=== PATIENT | male | born 1945 | race Caucasian/White ===

== ENCOUNTER 2021-11-21 09:51 | Inpatient (IN) | payer MEDICARE, OTHER ==
[~2021-11-21] VITALS: Ht 182.9 cm; Wt 80.7 kg
--- NOTE | 2021-11-21 10:15 | NUR ---
[facility] "UnWitnessed Fall yesterday. [place] at head and back Per Iris he told me he fell last night and was found w/alcohol in the bed". The patient is alert and oriented x2. Denies pain. Received the patient on oxygen at 4L/min (the patient is usually on oxygen) and saturation is at 97%. Respiration regular and unlabored. Attached to the monitor. Will continue to monitor the patient.
--- NOTE | 2021-11-21 10:44 | NUR ---
REPORT GIVEN TO NURSE DOUGLAS FOR NIKHIL
--- NOTE | 2021-11-21 10:44 | NUR ---
TAKEN TO CT
--- NOTE | 2021-11-21 11:09 | NUR ---
SWAB FOR COVID 19 SENT TO LAB.
--- NOTE | 2021-11-21 11:12 | NUR ---
PRODUCTION SUPERVISOR TRAINEE. AT BED SIDE
[2021-11-21 11:21] LABS: BASOPHILS % (AUTO) 0.4 % (0.0-2.0); EOSINOPHILS % (AUTO) 3.5 % (0.0-6.0); HEMATOCRIT 46 % (39-51); HEMOGLOBIN 14.7 g/dL (13.5-17.5); LYMPHOCYTES # (AUTO) 1.8 K/uL (0.8-4.8); MEAN CORPUSCULAR HGB CONC 32 g/dl (31.0-36.0); MEAN CORPUSCULAR VOLUME 94 fL (80-96); MONOCYTES # (AUTO) 0.4 K/uL (0.1-1.30); MONOCYTES % (AUTO) 9.4 % (2.0-12.0); NEUTROPHILS # (AUTO) 2.2 K/uL (1.8-8.9); NEUTROPHILS % (AUTO) 47.7 % (43.0-81.0); PLATELET COUNT (AUTO) 126 K/uL (150-450); RED BLOOD CELL COUNT(AUTO) 4.95 MIL/uL (4.5-6.0); WHITE BLOOD COUNT (AUTO) 4.7 K/uL (4.3-11.0)
[2021-11-21 11:50] LABS: ALANINE AMINOTRANSFERASE 24 U/L (12-78); ALBUMIN 3.2 g/dL (3.4-5.0); ALKALINE PHOSPHATASE 85 U/L (46-116); ASPARTATE AMINOTRANSFERASE 26 U/L (15-37); BILIRUBIN,DIRECT 0.2 mg/dL (0.0-0.2); BILIRUBIN,TOTAL 0.5 mg/dL (0.2-1.0); TOTAL PROTEIN, SERUM 7.2 g/dL (6.4-8.2)
[2021-11-21] MEDS ORDERED: AMAN100C16 PO (12:12)
[2021-11-21] MEDS ORDERED: UMEC1BLS IH (12:13)
[2021-11-21] MEDS ORDERED: RISP0.5T65 PO (12:13)
[2021-11-21] MEDS ORDERED: GABA-532 PO ×2 (12:13)
[2021-11-21] MEDS ORDERED: IPRA12.9 IH (12:13)
[2021-11-21] MEDS ORDERED: FLUO20CA42 PO (12:13)
[2021-11-21] MEDS ORDERED: DOCU100T28 PO (12:13)
[2021-11-21] MEDS ORDERED: TRAZ-257 PO (12:13)
[2021-11-21] MEDS ORDERED: ALBU6.7H9 INH (12:13)
[2021-11-21] MEDS ORDERED: ATOR20TA PO (12:13)
[2021-11-21 12:22] LABS: CREATININE 0.9 mg/dL (0.6-1.3)
--- NOTE | 2021-11-21 14:11 | NUR ---
NURSING SUP GAVE TELE BED 105.
--- NOTE | 2021-11-21 14:24 | NUR ---
COVID PCR AND ANTIGEN SENT TO THE LAB.
[2021-11-21 14:36] LABS: CREATININE 0.7 mg/dL (0.6-1.3)
--- NOTE | 2021-11-21 15:44 | NUR ---
report given to Cammy GARCIAS).
[2021-11-21 16:24] LABS: MAGNESIUM 2.4 mg/dL (1.8-2.4)
--- NOTE | 2021-11-21 16:30 | NUR ---
RN NOTE PATIENT ADMITTED TO UNIT PLACED IN ROOM 105.
--- NOTE | 2021-11-21 16:52 | NUR ---
pt transferred per hospital protocol.
--- NOTE | 2021-11-21 17:08 | NUR ---
RN NOTE INFORMED PROVIDER NO ADMISSION ORDERS.
[2021-11-21] MEDS ORDERED: Thiamine 100 MG in IV D5W 50 ML IV ONE (18:00)
[2021-11-21] MEDS ORDERED: ONDANSETRON HCL/PF 4 MG/2 ML VIAL IVP PRN (18:00)
[2021-11-21] MEDS ORDERED: ACETAMINOPHEN 325 MG TABLET PO PRN (18:00)
[2021-11-21] MEDS ORDERED: Z GUARD REMEDY 4 OZ OINT TP PRN (18:00)
[2021-11-21 18:18] VITALS: BP 103/70
[2021-11-21] MEDS: ENOXAPARIN SODIUM 40 MG/0.4 ML DISP.SYRIN SQ SCH (18:56)
--- NOTE | 2021-11-21 18:58 | NUR ---
RN ADMITTING NOTE RECEIVED PATIENT FROM ER VIA RNEY . PT IS AO X 4, IN NO SIGN OF ACUTE DISTRESS, RESPIRATIONS EVEN AND UNLABORED, SATURATION AT 95% ON 2 Litter NC. COMPREHENSIVE PHYSICAL ASSESSMENT AND PATIENT CARE DONE. NO SKIN ISSUES NOTED. NOTED IV LINE AT Rw 22G, PATENT AND FLUSHING WELL, NO S/S OF INFECTION OR INFILTRATION NOTED. NO NOTED SWELLING ON B LEGS/FEET. SAFETY MEASURES AND ISOLATION PRECAUTION IN PLACE, CALL LIGHT WITHIN REACH OF PATIENT, BED ON LOWEST POSITION, SIDE RAILS UP X 2. WILL CONTINUE MONITOR AND ASSESS THROUGHOUT THE SHIFT. WILL CARRY OUT MD ORDERS ACCORDINGLY.
--- NOTE | 2021-11-21 20:00 | NUR ---
MS RN OPENING NOTES: RECEIVED PATIENT AWAKE IN ROOM, BED IN LOW POSITION, CALL LIGHTS WITHIN REACH, NO COMPLAIN OF PAIN AND DISCOMFORT AT THIS TIME, PATIENT IS A/OX3-4 ABLE TO MAKE NEEDS KNOWN ON BRP WITH SUPERVISION, ON O2 INHALATION AT 2LPM SATURATING AT 94-95%, IV LINE AT RIGHT HAND WITH ONGOING PLR@100ML/ HR INFUSING WELL, PATIENT KEPT CLEAN AND DRY ALL NEEDS MET ENDORSE TO INCOMING SHIFT.
[2021-11-21] MEDS: TRAZODONE 50 MG TABLET PO SCH (22:06)
[2021-11-21] MEDS: IV LR 1000 ML 1,000 ML IV PRN (22:27)
[2021-11-22] VITALS: BP 103/70
[2021-11-22 04:00] VITALS: BP 140/74
--- NOTE | 2021-11-22 06:18 | NUR ---
MS RN CLOSING NOTES: PATIENT SLEEP IN BED, AROUSABLE TO VERBAL STIMULI, BED IN LOW POSITION, CALL LIGHTS WITHIN REACH, NO COMPLAIN OF PAIN AND DISCOMFORT AT THIS TIME, ON O2 INHALaTION AT 2LPM VIA NASAL CANNULA, PATIENT IS A/O X3-4 AMBULATORY ABLE TO MAKE NEEDS KNOWN, WITH IIV LINE AT RAC#22 WITH ONGOING PLR@100 ML/HR INFUSING WELL, PATIENT KEPT CLEAN AND DRY ALL NEEDS MET ENDORSE TO INCOMING SHIFT.
[2021-11-22 06:41] LABS: BASOPHILS % (AUTO) 0.5 % (0.0-2.0); EOSINOPHILS % (AUTO) 2.5 % (0.0-6.0); HEMATOCRIT 45 % (39-51); HEMOGLOBIN 14.3 g/dL (13.5-17.5); LYMPHOCYTES # (AUTO) 1.4 K/uL (0.8-4.8); LYMPHOCYTES % (AUTO) 24.4 % (20.0-44.0); MEAN CORPUSCULAR HGB CONC 32 g/dl (31.0-36.0); MEAN CORPUSCULAR VOLUME 94 fL (80-96); MONOCYTES # (AUTO) 0.6 K/uL (0.1-1.30); MONOCYTES % (AUTO) 9.9 % (2.0-12.0); NEUTROPHILS # (AUTO) 3.6 K/uL (1.8-8.9); NEUTROPHILS % (AUTO) 62.7 % (43.0-81.0); PLATELET COUNT (AUTO) 114 K/uL (150-450); RED BLOOD CELL COUNT(AUTO) 4.75 MIL/uL (4.5-6.0); WHITE BLOOD COUNT (AUTO) 5.8 K/uL (4.3-11.0)
[2021-11-22 06:59] LABS: BILIRUBIN,TOTAL 1.2 mg/dL (0.2-1.0); CALCIUM, SERUM 8.8 mg/dL (8.5-10.1); CREATININE 0.7 mg/dL (0.6-1.3); MAGNESIUM 2.1 mg/dL (1.8-2.4); PHOSPHORUS 3.2 mg/dL (2.5-4.9); POTASSIUM 4.2 mmol/L (3.5-5.1); TOTAL PROTEIN, SERUM 6.7 g/dL (6.4-8.2)
--- NOTE | 2021-11-22 07:30 | NUR ---
MS RN OPENING NOTES: RECEIVED PATIENT AWAKE IN BED, A&O X 3, ABLE TO MAKE NEEDS KNOWN, NO COMPLAIN OF PAIN AND DISCOMFORT AT THIS TIME, ON O2 INHALATION AT 2LPM SATURATING AT 94-95%, IV LINE AT RIGHT HAND WITH ONGOING LR@100ML/ HR INFUSING WELL, NO S/SX OF DISTRESS NOTED AT THIS TIME. SAFETY PRECAUTIONS IN PLACE: BED ON LOWEST LOCKED POSITION, SIDE RAILS UP X2, CALL LIGHT WITHIN EASY REACH. WILL CONTINUE TO MONITOR PATIENT ACCORDINGLY.
[2021-11-22] MEDS: PANTOPRAZOLE 40 MG TABLET.DR PO SCH (07:42)
[2021-11-22 08:00] VITALS: BP 142/65
[2021-11-22] MEDS: THIAMINE HCL 100 MG TABLET PO SCH (08:41)
[2021-11-22 09:05] LABS: THYROID STIMULATING HORMONE 1.639 uIU/mL (0.358-3.74)
[2021-11-22] MEDS: IV LR 1000 ML 1,000 ML IV PRN (10:48)
[2021-11-22] MEDS ORDERED: THIA500T PO (12:37)
--- NOTE | 2021-11-22 13:05 | NUR ---
RN NOTES PATIENT COMPLAINED OF PAIN ON THE CHEST AREA AND NOTED SHAKING ON HIS LEFT ARM. NOTIFIED NANCY LEMONS. ORDERED EKG. NO FURTHER ORDERS MADE.
[2021-11-22 16:00] VITALS: BP 141/79
[2021-11-22] MEDS: ENOXAPARIN SODIUM 40 MG/0.4 ML DISP.SYRIN SQ SCH (17:02)
--- NOTE | 2021-11-22 18:57 | NUR ---
MS RN CLOSING NOTES: PATIENT AWAKE IN BED, A&O X 3, ABLE TO MAKE NEEDS KNOWN, NO COMPLAINTS OF PAIN AND DISCOMFORT AT THIS TIME, ON O2 INHALATION AT 2LPM SATURATING AT 94-95%, IV LINE AT RIGHT HAND WITH ONGOING LR@100ML/ HR INFUSING WELL, NO S/SX OF DISTRESS NOTED AT THIS TIME. SAFETY PRECAUTIONS IN PLACE: BED ON LOWEST LOCKED POSITION, SIDE RAILS UP X2, CALL LIGHT WITHIN EASY REACH. ALL NEEDS ATTENDED AND MET. DUE MEDS GIVEN ORDERED. WILL ENDORSE TO ONCOMING SHIFT FOR NIKHIL.
--- NOTE | 2021-11-22 19:00 | NUR ---
RN NOTE RECEIVED PATIENT IN BED, AO X 4, IN NO ACUTE DISTRESS AT THIS TIME. BREATHING EVEN AND UNLABORED, SATURATION AT 96% ON 2LPM VIA NC, HR IS 65. NOTED IV SITE AT RAC 22G, PATENT AND FLUSHING WELL, NO S/S OF INFECTION OR INFILTRATION WITH LR INFUSING AT 100 ML/HR. SAFETY MEASURES IMPLEMENTED. PATIENT BED ALARM IS ON. HEAD OF BED ELEVATED. BED IS LOCKED, IN LOWEST POSITION AND SIDE RAILS UP. CALL LIGHT WITHIN REACH OF THE PATIENT. WILL CONTINUE TO MONITOR AND REASSESS FOR ANY CHANGES.
[2021-11-22 20:00] VITALS: BP 133/74
[2021-11-22] MEDS: TRAZODONE 50 MG TABLET PO SCH (21:49)
[2021-11-23 00:02] VITALS: BP 133/74
[2021-11-23 04:00] VITALS: BP 114/62
[2021-11-23] MEDS: IV LR 1000 ML 1,000 ML IV PRN (06:46)
--- NOTE | 2021-11-23 07:34 | NUR ---
RN NOTE PT REFUSED IV FLUID, EXPLAINED AND EDUCATED ABOUT IMPORTANCE OF IV FLUID, BUT STILL REFUSED. ENDORSED TO MICHELLE TURNER TO INFORM AM , DATA ACQUISITION TECHNICIAN MADE AWARE.
--- NOTE | 2021-11-23 07:50 | NUR ---
RN OPENING NOTES RECEIVED PATIENT FROM OUTGOING NURSE FOR CONTINUITY OF CARE. PATIENT IN BED, AO X 4, IN NO S/SX OF ACUTE DISTRESS AT THIS TIME. ON 2 LITER NC, SATURATION AT 100%, IV SITE AT RIGHT AC 22G,LR 100ML/HR. PATENT AND FLUSHING WELL, NO S/S OF INFECTION OR INFILTRATION. SAFETY MEASURES IMPLEMENTED. PATIENT BED ALARM IS ON. HEAD OF BED ELEVATED. BED IS LOCKED, IN LOWEST POSITION AND SIDE RAILS UP. CALL LIGHT WITHIN REACH OF THE PATIENT. WILL CONTINUE TO MONITOR AND REASSESS FOR ANY CHANGES.
[2021-11-23 08:00] VITALS: BP 139/77
[2021-11-23] MEDS: PANTOPRAZOLE 40 MG TABLET.DR PO SCH (09:00)
[2021-11-23] MEDS: THIAMINE HCL 100 MG TABLET PO SCH (09:00)
[2021-11-23] MEDS: ENOXAPARIN SODIUM 40 MG/0.4 ML DISP.SYRIN SQ SCH (09:01)
[2021-11-23 16:00] VITALS: BP 144/82
--- NOTE | 2021-11-23 19:01 | NUR ---
RN CLOSING NOTES: PATIENT AWAKE IN BED, A&O X 4, ABLE TO MAKE NEEDS KNOWN, NO COMPLAINTS OF PAIN AND DISCOMFORT AT THIS TIME, ON O2 INHALATION AT 2LPM SATURATING , IV LINE AT RIGHT HAND , NO S/SX OF DISTRESS NOTED AT THIS TIME. SAFETY PRECAUTIONS IN PLACE: BED ON LOWEST LOCKED POSITION, SIDE RAILS UP X2, CALL LIGHT WITHIN EASY REACH. ALL NEEDS ATTENDED AND MET. DUE MEDS GIVEN ORDERED. WILL ENDORSE TO ONCOMING SHIFT FOR NIKHIL. Addendum: 11/23/21 at 1947 by MICHELLE NAVA RN Patient refused his IV fluid LR 100ml/hr all day. I reported Dr. carrasco he said watch his intake and food intake. He has eaten 50% of his lunch and his dinner. today.
--- NOTE | 2021-11-23 19:30 | NUR ---
MS RN OPENING NOTE RECEIVED PATIENT AWAKE IN BED. A&O X 4, ABLE TO MAKE NEEDS KNOWN, NO COMPLAINTS OF PAIN OR DISCOMFORT AT THIS NANCY. ON O2 @ 2LPM SATURATING WELL. NO SOB OR S/S OF RESPIRATORY DISTRESS NOTED. IV ACCESS RIGHT HAND 22 GAUGE, INTACT AND PATENT, REFUSING IVF AT THIS TIME. SAFETY PRECAUTIONS IN PLACE. BED IN LOWEST LOCKED POSITION, HOB ELEVATED, SIDE RAILS UP X2, AND CALL LIGHT AND TABLE WITHIN REACH. ALL NEEDS MET AT THIS TIME.
[2021-11-23 20:00] VITALS: BP 132/82
[2021-11-23] MEDS: TRAZODONE 50 MG TABLET PO SCH (21:35)
[2021-11-24 04:00] VITALS: BP 138/78
--- NOTE | 2021-11-24 06:35 | NUR ---
MS RN CLOSING NOTE PATIENT AWAKE IN BED. A&O X 4, ABLE TO MAKE NEEDS KNOWN, NO COMPLAINTS OF PAIN OR DISCOMFORT AT THIS NANCY. ON O2 @ 2LPM SATURATING WELL. NO SOB OR S/S OF RESPIRATORY DISTRESS NOTED. IV ACCESS RIGHT HAND 22 GAUGE, INTACT AND PATENT, REFUSING IVF DURING ENTIRE SHIFT. ALL DUE MEDS GIVEN ORDERED. SAFETY PRECAUTIONS IN PLACE AT ALL TIMES. BED IN LOWEST LOCKED POSITION, HOB ELEVATED, SIDE RAILS UP X2, AND CALL LIGHT AND TABLE WITHIN REACH. ALL NEEDS MET AT THIS TIME. WILL ENDORSE TO ONCOMING NURSE FOR NIKHIL.
--- NOTE | 2021-11-24 07:53 | NUR ---
RN OPENING NOTES RECEIVED PATIENT FROM OUTGOING NURSE FOR CONTINUITY OF CARE. PATIENT IN BED, AO X 4, IN NO S/SX OF ACUTE DISTRESS AT THIS TIME. ON 2 LITER NC, SATURATION At 97%, IV SITE AT RIGHT AC 22gage, PATENT AND FLUSHING WELL, NO S/S OF INFECTION OR INFILTRATION. SAFETY MEASURES IMPLEMENTED. PATIENT BED ALARM IS ON. HEAD OF BED ELEVATED. BED IS LOCKED, IN LOWEST POSITION AND SIDE RAILS UP. CALL LIGHT WITHIN REACH OF THE PATIENT. WILL CONTINUE TO MONITOR AND REASSESS FOR ANY CHANGES.
[2021-11-24 08:00] VITALS: BP 138/84
[2021-11-24] MEDS: PANTOPRAZOLE 40 MG TABLET.DR PO SCH (08:59)
[2021-11-24] MEDS: THIAMINE HCL 100 MG TABLET PO SCH (09:00)
--- NOTE | 2021-11-24 15:21 | NUR ---
Discharge note Patient given written and verbal discharge instructions. Patient verbalizes understanding of instructions. Patient is ambulatory with assist. Patient ID band and IV's removed. Report given to [place] at assisted living home. Patient taken to assisted living with BIBGerald via gurney. Patient had no distress or SOB at the time of leaving the hospital.
== END 2021-11-24 14:40 | DRG 74 ==
LOC: ER 10:00 → MEDSG1 15:54
PROVIDERS: ADMIT Nurse Practitioner Acute Care; ATTEND Nurse Practitioner Acute Care
DX: G90.8 Other disorders of autonomic nervous system (principal); E87.2 Acidosis; F03.91 Unspecified dementia, unspecified severity, with behavioral disturbance; F10.129 Alcohol abuse with intoxication, unspecified; Y90.6 Blood alcohol level of 120-199 mg/100 ml; G62.9 Polyneuropathy, unspecified; I10 Essential (primary) hypertension; E78.5 Hyperlipidemia, unspecified; Z90.79 Acquired absence of other genital organ(s); Z90.49 Acquired absence of other specified parts of digestive tract; Z85.038 Personal history of other malignant neoplasm of large intestine; Z85.46 Personal history of malignant neoplasm of prostate; J44.9 Chronic obstructive pulmonary disease, unspecified; Z20.822 Contact with and (suspected) exposure to COVID-19; W19.XXXA Unspecified fall, initial encounter; Y93.9 Activity, unspecified; Y92.89 Other specified places as the place of occurrence of the external cause
CPT/HCPCS: 36415; 70450-TC; 71045-TC; 72125-TC; 80048-TC; 80053-TC; 80061-TC; 80076-TC; 82565-TC; 82962-TC; 83605-TC; 83735-TC; 84100-TC; 84443-TC; 84484-TC; 85025-TC; 87081-TC; 93307-TC; 97116-TC; 97530-TC; A4349; C9803; G0378; G0480; J1650; J3411; J7050; J7060; J7120; U0003

== ENCOUNTER 2022-04-20 21:39 | Inpatient (IN) | payer MEDICARE, OTHER ==
[~2022-04-20] VITALS: Ht 175.3 cm; Wt 73.9 kg
[~2022-04-20 21:39] MED LIST: ALBU6.7H9 INH; AMAN100C16 PO; ATOR20TA PO; DOCU100T28 PO; FLUO20CA42 PO; GABA-532 PO; IPRA12.9 IH; RISP0.5T65 PO; THIA500T PO; TRAZ-257 PO; UMEC1BLS IH
[2022-04-20] MEDS ORDERED: TDAP [DIPH/PERTUSSIS/TET] 0.5 ML VIAL IM ONE ×2 (22:48→23:00)
--- NOTE | 2022-04-20 23:05 | NUR ---
PATEINT CORY FORM [facility] FOR UNWITNESSED TRIP AND FALL, AVULSION TO LEFT UPPER ARM. PATIENT IS A/O X 2, RR EVEN AND UNLABORED NO SOB NOTED. PATIENT TAKEN TO ER BED 11. PATIENT CONNECTED TO CARDAIC MONITOR AND POX. WILL CONTINUE TO MONITOR.
--- NOTE | 2022-04-20 23:15 | NUR ---
BLOOD SENT TO LAB
--- NOTE | 2022-04-20 23:23 | NUR ---
PT TAKEN TO CT VIA LUL
[2022-04-20 23:38] LABS: BASOPHILS % (AUTO) 0.2 % (0.0-2.0); HEMATOCRIT 42 % (39-51); HEMOGLOBIN 13.5 g/dL (13.5-17.5); LYMPHOCYTES # (AUTO) 1.9 K/uL (0.8-4.8); LYMPHOCYTES % (AUTO) 18.3 % (20.0-44.0); MEAN CORPUSCULAR HGB CONC 33 g/dl (31.0-36.0); MEAN CORPUSCULAR VOLUME 90 fL (80-96); MONOCYTES # (AUTO) 0.9 K/uL (0.1-1.30); MONOCYTES % (AUTO) 8.3 % (2.0-12.0); NEUTROPHILS # (AUTO) 7.5 K/uL (1.8-8.9); NEUTROPHILS % (AUTO) 72.2 % (43.0-81.0); PLATELET COUNT (AUTO) 158 K/uL (150-450); RED BLOOD CELL COUNT(AUTO) 4.61 MIL/uL (4.5-6.0); WHITE BLOOD COUNT (AUTO) 10.4 K/uL (4.3-11.0)
[2022-04-21] VITALS (7 sets, daily range): BP systolic 96–107; BP diastolic 55–66
[2022-04-21 00:04] LABS: CALCIUM, SERUM 9.2 mg/dL (8.5-10.1); CARBON DIOXIDE 32 mmol/L (21-32); CHLORIDE 105 mmol/L (98-107); CREATININE 0.8 mg/dL (0.6-1.3); GLUCOSE 101 mg/dL (74-106); POTASSIUM 3.6 mmol/L (3.5-5.1); SODIUM SERUM 145 mmol/L (136-145); UREA NITROGEN, BLOOD 22 mg/dL (7-18)
[2022-04-21 00:22] LABS: ALANINE AMINOTRANSFERASE 29 U/L (12-78); ALBUMIN 3.5 g/dL (3.4-5.0); ALKALINE PHOSPHATASE 71 U/L (46-116); ASPARTATE AMINOTRANSFERASE 28 U/L (15-37); BILIRUBIN,DIRECT 0.3 mg/dL (0.0-0.2); BILIRUBIN,TOTAL 2.3 mg/dL (0.2-1.0); TOTAL PROTEIN, SERUM 7.2 g/dL (6.4-8.2)
--- NOTE | 2022-04-21 00:27 | NUR ---
URINE COLLECTED SENT TO LAB
[2022-04-21 00:38] LABS: BILIRUBIN,URINE NEGATIVE (NEGATIVE); COLOR,URINE YELLOW (YELLOW); LEUKOCYTE ESTERASE ,URINE NEGATIVE (NEGATIVE); NITRITE, URINE NEGATIVE (NEGATIVE); PROTEIN,URINE NEGATIVE (NEGATIVE); UGLUCOSE NEGATIVE (NEGATIVE); UROBILINOGEN,URINE 0.2 EU/dL (0.2)
[2022-04-21] MEDS ORDERED: ACETAMINOPHEN 325 MG TABLET PO PRN (01:00)
[2022-04-21] MEDS ORDERED: Z GUARD REMEDY 4 OZ OINT TP PRN (01:00)
[2022-04-21] MEDS ORDERED: MAG HYDROX/AL HYDROX/SIMETH 30 ML UDC PO PRN (01:00)
[2022-04-21] MEDS ORDERED: ONDANSETRON HCL/PF 4 MG/2 ML VIAL IVP PRN (01:00)
[2022-04-21] MEDS ORDERED: IV NS 0.9% 1,000 ML IV PRN (01:00)
[2022-04-21] MEDS ORDERED: MAGNESIUM HYDROXIDE 30 ML UDC PO PRN (01:00)
--- NOTE | 2022-04-21 01:01 | NUR ---
REPORT GIVEN TO JOHNNY DELGADO
--- NOTE | 2022-04-21 01:25 | NUR ---
REPORT GIVEN TO JOHNNY SKAGGS AT BEDSIDE
--- NOTE | 2022-04-21 02:00 | NUR ---
BRIDGE OPERATORFITTER PLACER NOTES PATIENT BROUGHT IN UNIT AT AROUND 0115, ACCOMPANIED BY 2 ER PERSONNELS. NO S/S OF APPARENT DISTRESS ON ROOM AIR. DENIES ANY PAIN. IV ACCESS ON R. AC FLUSHING WELL. A/OX2 TO NAME, AND TIME. PATIENT WISHES TO BE FULL CODE. PER PATIENT HE IS UP TO DATE WITH ALL HIS IMMUNIZATIONS INCLUDING COVID, ALTHOUGH PATIENT DOES NOT KNOW THE DATES HE GOT THEM. MULTIPLE WOUNDS AND SCABS NOTED WITH A BIG SKIN TEAR ON L. UPPER ARM D/T RECENT FALL. TELE MONITOR READING SR WITH 88 BPM. PATIENT DENIES DRINKING, PER PATIENT "USED TO" AND REPORTS QUITTING SMOKING 28 YEARS AGO. BELONGINGS CHECKED AND INVENTORIED. NEW ID BAND ON PATIENT. WILL CONTINUE WITH PLAN OF CARE FOR PATIENT AND FOLLOW THROUGH DOCTOR'S ORDERS. PATIENT 163 LBS. ORIENTED IN THE UNIT AND THE USE OF CALL LIGHT. SAFETY PUT INTO PLACE.
--- NOTE | 2022-04-21 03:22 | NUR ---
SEARCH ENGINE OPTIMIZATION ANALYST NOTE PATIENT CONFUSED TRYING TO GET OUT OF BED. SAFETY IN PLACE.
--- NOTE | 2022-04-21 03:23 | NUR ---
ORTHOSTATIC BP LAYING DOWN: 104/66 HR-86 SITTIN/66 HR 92 STANDING UP: 96/64 HR 103 NO COMPLAINTS OF LIGHTHEADEDNESS. PATIENT CONFUSED AT THIS TIME, TRYING TO GET UP OF BED.
[2022-04-21 06:17] LABS: BASOPHILS % (AUTO) 0.3 % (0.0-2.0); EOSINOPHILS % (AUTO) 2.4 % (0.0-6.0); HEMATOCRIT 39 % (39-51); HEMOGLOBIN 12.6 g/dL (13.5-17.5); LYMPHOCYTES # (AUTO) 2.4 K/uL (0.8-4.8); LYMPHOCYTES % (AUTO) 24.3 % (20.0-44.0); MEAN CORPUSCULAR HGB CONC 32 g/dl (31.0-36.0); MEAN CORPUSCULAR VOLUME 92 fL (80-96); NEUTROPHILS # (AUTO) 6.2 K/uL (1.8-8.9); PLATELET COUNT (AUTO) 154 K/uL (150-450); RED BLOOD CELL COUNT(AUTO) 4.27 MIL/uL (4.5-6.0); WHITE BLOOD COUNT (AUTO) 9.8 K/uL (4.3-11.0)
[2022-04-21 06:51] LABS: ALANINE AMINOTRANSFERASE 26 U/L (12-78); ALBUMIN 3.4 g/dL (3.4-5.0); ALKALINE PHOSPHATASE 68 U/L (46-116); ASPARTATE AMINOTRANSFERASE 28 U/L (15-37); BILIRUBIN,TOTAL 2.3 mg/dL (0.2-1.0); CALCIUM, SERUM 9.2 mg/dL (8.5-10.1); CARBON DIOXIDE 30 mmol/L (21-32); CHLORIDE 105 mmol/L (98-107); CREATININE 0.8 mg/dL (0.6-1.3); GLUCOSE 100 mg/dL (74-106); MAGNESIUM 2.3 mg/dL (1.8-2.4); PHOSPHORUS 2.8 mg/dL (2.5-4.9); POTASSIUM 3.3 mmol/L (3.5-5.1); SODIUM SERUM 143 mmol/L (136-145); TOTAL PROTEIN, SERUM 6.9 g/dL (6.4-8.2); UREA NITROGEN, BLOOD 22 mg/dL (7-18)
[2022-04-21 07:05] LABS: THYROID STIMULATING HORMONE 2.093 uIU/mL (0.358-3.74)
--- NOTE | 2022-04-21 07:33 | NUR ---
report given to Leticia for continuity of patient care.
--- NOTE | 2022-04-21 07:43 | NUR ---
WOUND CARE CONSULT: PT REFUSED SKIN ASSESSMENT AND BECAME AGITATED. REVIEWED CHART, NURSING DOCUMENTATION AND PHOTOS WHICH INDICATE SACRAL REDNESS, SIGNIFICANT SKIN AVULSION TO LEFT ARM, RT ARM SKIN TEAR AND TOE WOUND, PRESENT ON ADMISSION. DR ELADIA BORREGO AND DR HARDIN CALLED FOR SURGICAL AND DPM CONSULT REQUESTS. RECOMMENDATIONS MADE FOR SKIN PROTECTION AND CARE OF SKIN TEARS. DISCUSSED WITH NURSING STAFF.
[2022-04-21] MEDS ORDERED: OLANZAPINE 10 MG VIAL IM ONE (08:00)
[2022-04-21] MEDS ORDERED: POTASSIUM CHLORIDE 20 MEQ TAB.PRT.SR PO ONE (08:30)
[2022-04-21] MEDS ORDERED: SERT50TA12 PO (08:49)
[2022-04-21] MEDS ORDERED: ASPI-1420 PO (08:49)
[2022-04-21] MEDS ORDERED: PANTOPRAZOLE 40 MG VIAL IV SCH (09:00)
[2022-04-21] MEDS: QUETIAPINE FUMARATE 25 MG TABLET PO SCH ×3 (09:00→17:53)
[2022-04-21] MEDS ORDERED: LORAZEPAM INJ 2 MG/ML VIAL IV STA (09:35)
[2022-04-21] MEDS ORDERED: POTASSIUM CHLORIDE 20 MEQ TAB.PRT.SR PO SCH (10:00)
[2022-04-21] MEDS ORDERED: LORAZEPAM INJ 2 MG/ML VIAL IV PRN (18:30)
--- NOTE | 2022-04-21 18:51 | NUR ---
NETBACKUP ADMINISTRATOR CLOSING NOTE PATIENT RECEIVED IN ROOM AND SITTING UP ON SIDE OF BED. A/O X2 AND COMBATIVE AND UNCOOPERATIVE UPON ASSESSMENT. CONTINUOUS EPISODES OF TRYING TO GET OUT OF BED AND LEAVE FACILITY; PATIENT REMAINS CONFUSED. IV ACCESS TO RFA DISLODGED DURING SHIFT. WILL ENDORSE TO ONCOMING SHIFT. TOLERATED ALL MEDICATION WELL. PRN ATIVAN IV X1 WELL PRN SEROQUEL IM GIVEN ON SHIFT FOR BEHAVIORAL. MEDICATIONS EFFECTIVE. SAFETY MEASURES INTACT, BED IN LOW POSITION AND LOCKED WITH CALL LIGHT WITHIN REACH. SITTER REMAINS AT BEDSIDE FOR PATIENT SAFETY. WILL CONTINUE TO MONITOR.
--- NOTE | 2022-04-21 19:55 | NUR ---
TELERN RECEIVED RESTING QUIETLY. FOLLOWS SIMPLE INSTRUCTIONS CALM AT THIS TIME. SITTER AT BEDSIDE. TO CONTINUE.
--- NOTE | 2022-04-21 21:00 | NUR ---
TELERN COMBATIVE AT THIS TIME
--- NOTE | 2022-04-21 21:15 | NUR ---
telern ativan 1 mg ivp administered via new iv site right fa. sitter at bedside closely watched
[2022-04-21] MEDS ORDERED: ZOLPIDEM TARTRATE 5 MG TABLET PO SCH (22:00)
--- NOTE | 2022-04-21 22:09 | NUR ---
TELERN TRYING TO GET OOB. HAVE PATIENT SIT ON A RECLINER CHAIR, SOB ON MINIMAL EXERTION. 02 2L VIA NC IN PLACE. CLOSELY WATCHED.
--- NOTE | 2022-04-22 | NUR ---
TELERN REFUSED TO HAVE HIS V/S TAKEN, UNCOOPERATIVE.
--- NOTE | 2022-04-22 00:20 | NUR ---
TELERN AGREED TO TAKE HIS AMBIEN. WAS COMBATIVE ON/OFF EARLIER.
--- NOTE | 2022-04-22 02:20 | NUR ---
TELERN MONITOR STILL OFF, BECOMES COMBATIVE WHEN ON. REMAINS AWAKE, CALM AND QUIET OF THIS TIME
--- NOTE | 2022-04-22 02:35 | NUR ---
TELERN SLEEPING OF THIS TIME ON RECLINER.
--- NOTE | 2022-04-22 05:19 | NUR ---
TELERN SLEEPING STILL IN RECLINER, AWAKENED WHEN TOUCHED
[2022-04-22 05:20] VITALS: BP 103/69
--- NOTE | 2022-04-22 06:56 | NUR ---
TELERN TRIED TO PUT BACK TELE MONITOR BOX AWAKENED AND WAS TRYING TO HIT AND KICK STAFF. WENT BACK TO SLEEP AFTER.
--- NOTE | 2022-04-22 07:30 | NUR ---
GRADE RECORDER OPENING NOTE RECEIVED PT SLEEPING COMFORTABLY IN MARYBEL CHAIR. PT HAS NO S/S OF RESPIRATORY DISTRESS, NO S/S OF PAIN NOTED. NIGHT NURSE REPORTED THAT PT REMOVED TELE MONITOR LAST NIGHT. PT WAS CONFUSED, AND AGITATED AT NIGHT. WILL CONTINUE TO MONITOR PT.
[2022-04-22] MEDS: PANTOPRAZOLE 40 MG TABLET.DR PO SCH ×2 (08:45→08:58)
--- NOTE | 2022-04-22 08:49 | NUR ---
CLINICAL BUSINESS ANALYST NOTES PT RESTING AT [facility], CALM AT THIS TIME, SEEN BY DR. BAUM TODAY.
[2022-04-22] MEDS: risperiDONE-M 0.5 MG TAB.RAPDIS PO SCH ×2 (08:59→09:00)
[2022-04-22] MEDS ORDERED: NEOMY SULF/BACITRAC ZN/POLY 15 GM TUBE TP SCH (09:00)
--- NOTE | 2022-04-22 09:00 | NUR ---
AM MEDS NOT ADMINISTERED TO PATIENT BECAUSE PATIENT TOO SLEEPY.
[2022-04-22] MEDS ORDERED: ACET-868 PO (13:19)
[2022-04-22] MEDS ORDERED: MAGN400O6 PO (13:19)
[2022-04-22] MEDS ORDERED: ALLA266C2 TP (13:19)
[2022-04-22] MEDS ORDERED: PANT40TA2 PO (13:19)
[2022-04-22] MEDS ORDERED: NEOM28.37 TP (13:19)
[2022-04-22] MEDS ORDERED: MAG30ORA PO (13:19)
[2022-04-22] MEDS ORDERED: ZOLP5TAB8 PO (13:19)
[2022-04-22] MEDS ORDERED: RISP0.2515 PO (13:19)
[2022-04-22 14:35] VITALS: BP 126/65
--- NOTE | 2022-04-22 16:30 | NUR ---
GREENS TIER NOTES PT IN BED, SLEEPY, EASILY AROUSABLE, NO COMPLAINT AT THIS TIME, NOT IN DISTRESS, DISCHARGE ORDER GIVEN BY DR. BAUM, PHOTOS TAKEN AND TREATMENTS DONE TO ALL SKIN TEARS, PT FOR DISCHARGE TO GPS, REPORT GIVEN TO DORENE TURNER, TRANSPORTED PT VIA BED TO ROOM 211-1 IN STABLE CONDITION.
== END 2022-04-22 16:25 | DRG 640 ==
LOC: ER 21:44 → TELE 04-21 00:50
PROVIDERS: ADMIT Nurse Practitioner Acute Care; ATTEND Nurse Practitioner Acute Care
DX: E86.0 Dehydration (principal); N17.0 Acute kidney failure with tubular necrosis; G93.40 Encephalopathy, unspecified; I10 Essential (primary) hypertension; Z20.822 Contact with and (suspected) exposure to COVID-19; G30.9 Alzheimer's disease, unspecified; F02.80 Dementia in other diseases classified elsewhere, unspecified severity, without behavioral disturbance, psychotic disturbance, mood disturbance, and anxiety; S41.112A Laceration without foreign body of left upper arm, initial encounter; W19.XXXA Unspecified fall, initial encounter; Y92.099 Unspecified place in other non-institutional residence as the place of occurrence of the external cause; Z79.51 Long term (current) use of inhaled steroids; Z79.899 Other long term (current) drug therapy; F29 Unspecified psychosis not due to a substance or known physiological condition; J44.9 Chronic obstructive pulmonary disease, unspecified; F32.A Depression, unspecified; E78.5 Hyperlipidemia, unspecified; Z98.890 Other specified postprocedural states; E87.6 Hypokalemia; E80.6 Other disorders of bilirubin metabolism; M47.812 Spondylosis without myelopathy or radiculopathy, cervical region; R26.9 Unspecified abnormalities of gait and mobility; Z87.891 Personal history of nicotine dependence; Q66.89 Other specified congenital deformities of feet; S90.122A Contusion of left lesser toe(s) without damage to nail, initial encounter; M48.02 Spinal stenosis, cervical region; G89.29 Other chronic pain; V89.2XXA Person injured in unspecified motor-vehicle accident, traffic, initial encounter; Y92.9 Unspecified place or not applicable; G20 Parkinson's disease; R74.01 Elevation of levels of liver transaminase levels
CPT/HCPCS: 36415; 70450-TC; 71045-TC; 72125-TC; 72131-TC; 80048-TC; 80053-TC; 80076-TC; 83735-TC; 84100-TC; 84443-TC; 84484-TC; 85025-TC; 85730-TC; 90715; 93307-TC; A6253; C9113; C9803; G0378; G0480; J2060; J3490; J7030

== ENCOUNTER 2022-04-22 13:04 | Inpatient (IN) | payer MEDICARE, OTHER ==
[~2022-04-22] VITALS: Ht 170.2 cm; Wt 73.9 kg
[~2022-04-22 13:04] MED LIST changes: -AMAN100C16 PO; +ASPI-1420 PO; -FLUO20CA42 PO; -IPRA12.9 IH; -RISP0.5T65 PO; +SERT50TA12 PO; -THIA500T PO; -TRAZ-257 PO; -UMEC1BLS IH
[2022-04-22] MEDS ORDERED: ZOLP5TAB8 PO (13:19)
[2022-04-22] MEDS ORDERED: ACET-868 PO (13:19)
[2022-04-22] MEDS ORDERED: MAG30ORA PO (13:19)
[2022-04-22] MEDS ORDERED: ALLA266C2 TP (13:19)
[2022-04-22] MEDS ORDERED: RISP0.2515 PO (13:19)
[2022-04-22] MEDS ORDERED: MAGN400O6 PO (13:19)
[2022-04-22] MEDS ORDERED: NEOM28.37 TP (13:19)
[2022-04-22] MEDS ORDERED: PANT40TA2 PO (13:19)
[2022-04-22] MEDS ORDERED: ACETAMINOPHEN 325 MG TABLET PO PRN (15:30)
[2022-04-22] MEDS ORDERED: MAG HYDROX/AL HYDROX/SIMETH 30 ML UDC PO PRN (15:30)
[2022-04-22] MEDS ORDERED: MAGNESIUM HYDROXIDE 30 ML UDC PO PRN (15:30)
[2022-04-22] MEDS ORDERED: LORAZEPAM 1 MG TABLET PO PRN (15:30)
[2022-04-22] MEDS ORDERED: BLOOD SUGAR DIAGNOSTIC 1 EACH STRIP IN ONE (16:30)
--- NOTE | 2022-04-22 16:30 | NUR ---
GPS ADMITTING NOTES Admitted a 77yo male patient from Med Surg Unit @1630 via bed accompanied by RN from [facility] and report given by JOHNNY Luna. Patient alert and oriented x 1 with episodes of confusion. Per JOHNNY Luna patient is combative and very agitated. No SOB or cardiac distress noted and on room air and tolerating well. Lungs clear upon auscultation. Abdomen soft and not distention. Skin Issue assessment unable patient refused. Patient's belongings inspected for contraband. VS wnl. Safety precautions initiated in the unit: Bed locked and in lowest position, side rails up x 2. call light in easy reach for help. Patient's right booklet was given and advisement given. Dr Phan gave admitting orders, Dr Snowden notified. Kept rested and comfortable. Will monitor accordingly.
--- NOTE | 2022-04-22 17:40 | NUR ---
PT REFUSED MRSA.
[2022-04-22 20:00] VITALS: BP 118/87
--- NOTE | 2022-04-22 20:03 | NUR ---
GPS RN NOTE, PATIENT NEEDS A MEDICATION RECONCILIATION. PAGED [facility] AND INFORMED SEDRICK FONTANA DNP OF MY FINDINGS. SEDRICK FONTANA DNP SAID SHE WILL DO THIS PATIENT MEDICATION RECONCILIATION SOON POSABLE. ALL ORDERS NOTED AND CARRIED OUT. WILL CONTINUE TO MONITOR THIS PATIENT WITH THE HELP OF STAFF.
[2022-04-22] MEDS: ZOLPIDEM TARTRATE 5 MG TABLET PO PRN (21:34)
--- NOTE | 2022-04-22 21:40 | NUR ---
PRN AMBIEN 5 MG GIVEN VIA PO, PER PATIENT'S REQUEST. STATING HE WANTS TO FALL ASLEEP. REFUSED SKIN ASSESSMENT AT THIS TIME.
[2022-04-22] MEDS ORDERED: ALBUTEROL FS 2.5 MG/3 ML VIAL.NEB NEB PRN (23:45)
[2022-04-23] MEDS: DOCUSATE SODIUM 100 MG CAPSULE PO SCH ×3 (01:15→16:29)
[2022-04-23] MEDS: PANTOPRAZOLE 40 MG TABLET.DR PO SCH (07:47)
[2022-04-23 08:00] VITALS: BP 122/56
[2022-04-23] MEDS: ASPIRIN EC 81 MG TABLET.DR PO SCH (08:56)
[2022-04-23] MEDS: NEOMY SULF/BACITRAC ZN/POLY 15 GM TUBE TP SCH ×2 (09:38→16:30)
--- NOTE | 2022-04-23 12:00 | NUR ---
RN NOTES SKIN ASSESSMENT DONE. NOTED RIGHT FIRST, SECOND AND THIRD TOES REDNESS. LEFT SECOND AND THIRD TOES DRY WOUND. RIGHT UPPER ARM OPEN SKIN. CLEANED THE SITE WITH NS , PAT DRY AND COVERED WITH XEROFORM AND DRY DRESSING . NOTED WITH SOME BLEEDING AT THE SITE. RIGHT UPPER ARM OPEN SKIN. CLEANED WITH NS, PAD DRY AND COVERED WITH DRY DRESSING.LEFT POSTERIOR FOREARM DRY WOUND. RIGHT LATERAL FOOT REDNESS. LEFT LEG DRY WOUND. AND MID BACK BRUISE. RIGHT LEG DRY WOUND. MONITORED THE SKIN AND PICTURES TAKEN IN THE CHART AT 1200 PM.
[2022-04-23 15:37] LABS: CHOLESTEROL 96 mg/dL (<200); HDL CHOLESTEROL 47 mg/dL (40-60); LDL 42 mg/dL (0-99); TRIGLYCERIDES 77 mg/dL (30-150)
[2022-04-23 15:38] LABS: ALBUMIN 3.1 g/dL (3.4-5.0); BILIRUBIN,TOTAL 1.8 mg/dL (0.2-1.0); CREATININE 0.7 mg/dL (0.6-1.3); POTASSIUM 4.1 mmol/L (3.5-5.1); TOTAL PROTEIN, SERUM 6.7 g/dL (6.4-8.2)
[2022-04-23 16:01] VITALS: BP 109/63
[2022-04-23] MEDS: HYDROCODONE/APAP 5/325MG TABLET PO PRN (16:30)
--- NOTE | 2022-04-23 16:39 | NUR ---
RN NOTES PRN NORCO 5/325 MG 1 CAP GIVEN FOR LOWER BACK PAIN 02/22 AT 1631 PM.
--- NOTE | 2022-04-23 17:00 | NUR ---
RN NOTES PATIENT AND DR RICKETTS SIGNED THE CONSENT FOR RISPERDAL MEDICATION AT 1700. FAXED THE CONSENT TO THE PHARMACY AT 5029.
--- NOTE | 2022-04-23 18:15 | NUR ---
RN NOTES NEW ORDER OF RISPERDAL 0.5 MG PO BID GIVEN BY DR RICKETTS. ORDER NOTED .
[2022-04-23 20:00] VITALS: BP 100/63
--- NOTE | 2022-04-23 20:43 | NUR ---
RN NOTES: PATIENT RESTING IN ROOM. NO S/SX OF ACUTE DISTRESS NOTED, EASILY AGITATED, DISORGANIZED,FORGETFUL. ENCOURAGED TO VERBALIZE ANY FEELING OR CONCERN AND ENCOURAGED TO PARTICIPATE IN THE GROUP ACTIVITIES,DENIES SI/HI AT THIS TIME. SAFETY MEASURES IN PLACE. WILL CONTINUE TO MONITOR Q15MIN ROUNDS FOR SAFETY AND BEHAVIOR.
[2022-04-24 08:00] VITALS: BP 95/62
[2022-04-24] MEDS: risperiDONE 1 MG TABLET PO SCH ×2 (08:51→18:05)
[2022-04-24] MEDS: ASPIRIN EC 81 MG TABLET.DR PO SCH (08:51)
[2022-04-24] MEDS: DOCUSATE SODIUM 100 MG CAPSULE PO SCH ×2 (08:51→18:05)
[2022-04-24] MEDS: PANTOPRAZOLE 40 MG TABLET.DR PO SCH (08:51)
--- NOTE | 2022-04-24 08:51 | NUR ---
WOUND CARE CONSULT: PT FOLLOWED BY SURGICAL TEAM FOR LEFT ARM SKIN AVULSION, PRESENT ON ADMISSION. RECOMMENDATIONS MADE FOR WOUND CARE AND SKIN PROTECTION. PT ALSO NOTED TO HAVE DRY WOUNDS TO LOWER LEGS AND FEET, PRESENT ON ADMISSION. DR HARDIN NOTIFIED OF DPM CONSULT REQUEST. IN AGREEMENT WITH PLAN OF CARE.
[2022-04-24] MEDS: HYDROCODONE/APAP 5/325MG TABLET PO PRN (08:52)
[2022-04-24] MEDS: NEOMY SULF/BACITRAC ZN/POLY 15 GM TUBE TP SCH ×2 (11:53→18:04)
--- NOTE | 2022-04-24 15:59 | NUR ---
INITIAL DISCHARGE PLAN: THE PT. CURRENTLY RESIDES AT [facility] [[address] [facility] [address]; [phone] . PER PT. HE WOULD LIKE TO RETURN THERE ONCE CLEARED. NARESH SPOKE TO THE PT.'S DAUGHTER, SERENITY [phone] WHO STATES THAT SHE IS CONCERNED THE DEMENTIA IS PROGRESSING AND WOUDL PREFER SNF. NARESH WILL CONTINUE TO COLLABORATE WITH PSYCHIATRY TO ENSURE A SAFE & PROPER DISCHARGE PLANNING. Addendum: 04/27/22 at 1222 by NAZ INFANTE correct [facility] number:[phone]
[2022-04-24 16:00] VITALS: BP 90/58
--- NOTE | 2022-04-24 16:01 | NUR ---
POINT OF CONTACT: NARESH CALLED AND SPOKE TO THE PT.'S DAUGHTER, SERENITY [phone] TO GATHER COLLATERAL INFORMATION. PER SERENITY, THE PT. HAS HISTORY OF PARKINSON'S DISEASE AND POSSIBLY UNDIAGNOSED DEMENTIA.
--- NOTE | 2022-04-24 16:02 | NUR ---
NARESH called [facility] [[address] [facility] [address]; [phone] to determine if pt. may return and call was dropped no option to leave a voicemail. SW to follow up. Addendum: 04/27/22 at 1221 by NAZ INFANTE correct facility number:[phone]
[2022-04-24 20:00] VITALS: BP 99/60
--- NOTE | 2022-04-24 20:03 | NUR ---
RN NOTES:PATIENT WATCHING TV IN ACTIVITY ROOM. NO S/SX OF ACUTE DISTRESS NOTED, EASILY AGITATED, DISORGANIZED,FORGETFUL.NEEDY ENCOURAGED TO VERBALIZE ANY FEELING OR CONCERN AND ENCOURAGED TO PARTICIPATE IN THE GROUP ACTIVITIES,DENIES SI/HI AT THIS TIME. SAFETY MEASURES IN PLACE. WILL CONTINUE TO MONITOR Q15MIN ROUNDS FOR SAFETY AND BEHAVIOR.
[2022-04-24] MEDS: ZOLPIDEM TARTRATE 5 MG TABLET PO PRN (21:18)
--- NOTE | 2022-04-24 21:24 | NUR ---
RN NOTES: INSOMNIA PT. C/O UNABLE TO SLEEP, PRN AMBIEN 5 MG PO GIVEN , PER PT. REQUEST , WILL CONTINUE TO MONITOR.
--- NOTE | 2022-04-25 07:30 | NUR ---
RN OPENING NOTES PATIENT AWAKE IN BED RESTING,A/O X 1-2 CONFUSED AT TIMES, NO S/S OF PAIN NOTED AT THIS TIME. ON ROOM AIR NO DISTRESS OR SHORTNESS OF BREATH NOTED. PATIENT IS COMPLIANT WITH MEDICATION AND COOPERATIVE. PATIENT DENIES SUICIDE IDEATIONS AND HOMICIDAL IDEATIONS AT THIS TIME. PATIENT EDUCATED ON THE USE OF THE CALL HENRY. FALL AND SAFETY MEASURES IN PLACE, BED ALARM ON, BED IN LOW LOCK POSITION, CALL LIGHT AND TABLE WITHIN EASY REACH, SIDE RAILS UP X2. WILL CONTINUE TO MONITOR Q15MIN. WITH THE HELP OF STAFF TO MAINTAIN SAFETY.
[2022-04-25 08:00] VITALS: BP 123/74
[2022-04-25] MEDS: risperiDONE 1 MG TABLET PO SCH ×2 (09:04→16:38)
[2022-04-25] MEDS: ASPIRIN EC 81 MG TABLET.DR PO SCH (09:04)
[2022-04-25] MEDS: NEOMY SULF/BACITRAC ZN/POLY 15 GM TUBE TP SCH ×2 (09:04→16:39)
[2022-04-25] MEDS: DOCUSATE SODIUM 100 MG CAPSULE PO SCH ×2 (09:04→16:38)
[2022-04-25] MEDS: PANTOPRAZOLE 40 MG TABLET.DR PO SCH (09:37)
[2022-04-25] MEDS: HYDROCODONE/APAP 5/325MG TABLET PO PRN (14:37)
[2022-04-25 16:00] VITALS: BP 97/57
--- NOTE | 2022-04-25 20:12 | NUR ---
RN NOTES: PT. AWAKE ALERT X3 WATCHING TV IN ACTIVITY ROOM. NO S/SX OF ACUTE DISTRESS NOTED, EASILY AGITATED, DISORGANIZED,FORGETFUL.NEEDY ENCOURAGED TO VERBALIZE ANY FEELING OR CONCERN AND ENCOURAGED TO PARTICIPATE IN THE GROUP ACTIVITIES,DENIES SI/HI AT THIS TIME. SAFETY MEASURES IN PLACE. WILL CONTINUE TO MONITOR Q15MIN ROUNDS FOR SAFETY AND BEHAVIOR.
[2022-04-25 20:47] VITALS: BP 103/60
[2022-04-25] MEDS: ZOLPIDEM TARTRATE 5 MG TABLET PO PRN (21:40)
--- NOTE | 2022-04-25 21:41 | NUR ---
RN NOTES: INSOMNIA PT. C/O UNABLE TO SLEEP, PRN AMBIEN 5 MG PO GIVEN , PER PT. REQUEST , WILL CONTINUE TO MONITOR.
[2022-04-26] MEDS: ASPIRIN EC 81 MG TABLET.DR PO SCH (07:49)
[2022-04-26] MEDS: PANTOPRAZOLE 40 MG TABLET.DR PO SCH (07:49)
[2022-04-26] MEDS: DOCUSATE SODIUM 100 MG CAPSULE PO SCH ×2 (07:49→18:07)
[2022-04-26] MEDS: risperiDONE 1 MG TABLET PO SCH ×2 (07:49→18:07)
[2022-04-26] MEDS: NEOMY SULF/BACITRAC ZN/POLY 15 GM TUBE TP SCH ×2 (07:50→18:07)
[2022-04-26 08:00] VITALS: BP 98/50
[2022-04-26] MEDS ORDERED: ALBUTEROL SULFATE 8 GM HFA.AER.AD IH PRN (13:00)
[2022-04-26 16:00] VITALS: BP 99/60
[2022-04-26 20:00] VITALS: BP 124/66
[2022-04-26 20:19] VITALS: BP 124/66
--- NOTE | 2022-04-26 21:14 | NUR ---
RN NOTE: BACK PAIN PATIENT C/O BACK PAIN 10/23 AND REQUESTED TO TAKE TYLENOL. PRN TYLENOL 650 MG PO ADMINISTERED PER MD ORDER. WILL CONTINUE TO MONITOR FOR ANY CHANGES.
[2022-04-26] MEDS: ZOLPIDEM TARTRATE 5 MG TABLET PO PRN (22:13)
--- NOTE | 2022-04-26 22:14 | NUR ---
RN NOTE: INSOMNIA PATIENT C/O INABILITY TO SLEEP AND REQUESTED TO TAKE SLEEPING MEDICINE. PRN AMBIEN 5 MG PO ADMINISTERED ORDERED BY MD. WILL CONTINUE TO MONITOR FOR ANY CHANGES.
[2022-04-27] MEDS: PANTOPRAZOLE 40 MG TABLET.DR PO SCH (07:57)
--- NOTE | 2022-04-27 07:58 | NUR ---
RN NOTES RECEIVED PATIENT ASLEEP IN CORRECT BED, A&O X 2 CONFUSED, NO S/S OF DISTRESS, NO SOB, NO PAIN NOTED, PT ON ROOM AIR MAINTAING PULSE OXYGEN 94% - 98 %, PATIENT DENIES SUICIDE IDEATIONS AND HOMICIDAL IDEATIONS STATES NO DESIRE TO HURT SELF, PATIENT EDUCATED ON THE USE OF THE CALL HENRY. FALL AND SAFETY MEASURES IN PLACE, BED ALARM ON, BED IN LOW POSTITION BED IN LOCKED POSITION, CALL LIGHT AND TABLE WITHIN EASY REACH, SIDE RAILS UP X2. WILL CONTINUE TO MONITOR Q15MIN. TO ENSURE AND MAINTAIN SAFETY OF PATIENT AND ENSURE QUALITY OF CARE PROVIDED AND GIVEN TO THE PATIENT.
[2022-04-27 08:00] VITALS: BP 128/84
[2022-04-27] MEDS: ASPIRIN EC 81 MG TABLET.DR PO SCH (08:06)
[2022-04-27] MEDS: DOCUSATE SODIUM 100 MG CAPSULE PO SCH ×2 (08:06→17:41)
[2022-04-27] MEDS: risperiDONE 1 MG TABLET PO SCH ×2 (08:06→17:42)
[2022-04-27] MEDS: NEOMY SULF/BACITRAC ZN/POLY 15 GM TUBE TP SCH ×2 (09:00→17:44)
--- NOTE | 2022-04-27 12:19 | NUR ---
SW called [facility] [[address] [facility] [address]; [phone]] and per trust administrator, Suri the pt. is welcome to return back once cleared.
--- NOTE | 2022-04-27 13:31 | NUR ---
RN-CO: NOTIFIED DR LEMONS THAT PT NEEDS BREATHING TX. ORDERED ALBUTEROL INH Q 4HR PRN NOTED.
[2022-04-27] MEDS: ALBUTEROL FS 2.5 MG/0.5 ML VIAL.NEB NEB SCH ×2 (15:30→23:30)
[2022-04-27 16:00] VITALS: BP 111/64
[2022-04-27 19:58] VITALS: BP 99/53
[2022-04-27] MEDS: HYDROCODONE/APAP 5/325MG TABLET PO PRN (21:18)
--- NOTE | 2022-04-27 21:20 | NUR ---
Pt c/o lower back pain 02/22. [place] 5-325 mg 1 tab po prn given as ordered. Will continue to monitor.
--- NOTE | 2022-04-27 22:33 | NUR ---
Post 1 hr [place] effective. DC 0/10. Will continue to monitor.
[2022-04-27] MEDS: ZOLPIDEM TARTRATE 5 MG TABLET PO PRN (22:35)
--- NOTE | 2022-04-27 22:37 | NUR ---
Pt c/o insomnia. Least restrictive measures ineffective. Ambien 5 mg 1 tab po prn given as ordered. Will continue to monitor.
--- NOTE | 2022-04-27 23:50 | NUR ---
Post 1 hr Ambien effective. Pt asleep in bed easy to arouse. Frequent visual check done for safety. Will continue to monitor.
--- NOTE | 2022-04-28 00:15 | NUR ---
RT NOTE PATIENT REFUSING TX AT THIS TIME. PATIENT STATES HE WILL CONTINUE TO TAKE THE TREATMENTS IN THE MORNING. PRIMARY NURSE NOTIFIED AND AWARE. NO SIGNS OF RESPIRATORY DISTRESS.
[2022-04-28] MEDS: PANTOPRAZOLE 40 MG TABLET.DR PO SCH (07:25)
[2022-04-28] MEDS: ALBUTEROL FS 2.5 MG/0.5 ML VIAL.NEB NEB SCH ×3 (07:45→22:47)
[2022-04-28 08:00] VITALS: BP 126/64
[2022-04-28] MEDS: DOCUSATE SODIUM 100 MG CAPSULE PO SCH ×2 (08:02→17:05)
[2022-04-28] MEDS: ASPIRIN EC 81 MG TABLET.DR PO SCH (08:02)
[2022-04-28] MEDS: risperiDONE 1 MG TABLET PO SCH ×2 (08:02→17:05)
[2022-04-28] MEDS: NEOMY SULF/BACITRAC ZN/POLY 15 GM TUBE TP SCH ×2 (09:24→17:05)
--- NOTE | 2022-04-28 10:39 | NUR ---
Facility Contact: NARESH called [facility] [[address] [facility] [address]; [phone]] and per medical practice administrator, Suri, she stated pt is welcomed back on 04/30/2022, . NARESH faxed pt's clinicals (F:[phone]).
--- NOTE | 2022-04-28 11:36 | NUR ---
Court Hearing: Pt's court hearing for 5250 was today and it was upheld for GD.
--- NOTE | 2022-04-28 11:36 | NUR ---
Court Notification: Pt does not want any family members to be contacted.
--- NOTE | 2022-04-28 11:55 | NUR ---
NARESH Family Contact: NARESH contacted pt's daughter Cammy [phone] and notified of pt's discharge back to [facility]. She is aware.
[2022-04-28 16:00] VITALS: BP 108/74
[2022-04-28] MEDS: HYDROCODONE/APAP 5/325MG TABLET PO PRN (17:21)
--- NOTE | 2022-04-28 19:15 | NUR ---
GPS RN NOTES RECEIVED PATIENT RESTING IN BED. A&OX2, NO S/SX OF ACUTE DISTRESS NOTED. PATIENT IS CALM UPON APPROACH, FORGETFUL AT TIMES, COOPERATIVE TO CARE. ENCOURAGED TO VERBALIZE ANY FEELING OR CONCERNS. DENIES SI/HI/ AVH AT THIS TIME. SAFETY MEASURES IN PLACE. WILL CONTINUE TO MONITOR Q15MIN FOR SAFETY AND BEHAVIOR.
[2022-04-28 20:00] VITALS: BP 149/75
[2022-04-28] MEDS: ZOLPIDEM TARTRATE 5 MG TABLET PO PRN (22:32)
[2022-04-29] MEDS: PANTOPRAZOLE 40 MG TABLET.DR PO SCH (07:18)
[2022-04-29 08:00] VITALS: BP 100/57
[2022-04-29] MEDS: risperiDONE 1 MG TABLET PO SCH ×2 (08:09→16:37)
[2022-04-29] MEDS: DOCUSATE SODIUM 100 MG CAPSULE PO SCH ×2 (08:09→16:37)
[2022-04-29] MEDS: ASPIRIN EC 81 MG TABLET.DR PO SCH (08:09)
[2022-04-29] MEDS: NEOMY SULF/BACITRAC ZN/POLY 15 GM TUBE TP SCH ×2 (08:11→16:37)
[2022-04-29] MEDS: ALBUTEROL FS 2.5 MG/0.5 ML VIAL.NEB NEB SCH ×3 (08:26→23:31)
[2022-04-29 16:00] VITALS: BP 115/71
[2022-04-29 19:59] VITALS: BP 145/74
--- NOTE | 2022-04-29 20:00 | NUR ---
ECHOCARDIOGRAPH TECH NOTES: RECEIVED PT AWAKE, LAYING IN BED. A&OX2, NO S/SX OF ACUTE DISTRESS NOTED. PATIENT IS CALM AND COOPERATIVE. DENIES SI/HI/ AVH AT THIS TIME. SAFETY MEASURES IN PLACE. WILL CONTINUE TO MONITOR Q15MIN FOR SAFETY AND BEHAVIOR.
[2022-04-29] MEDS: HYDROCODONE/APAP 5/325MG TABLET PO PRN (23:09)
--- NOTE | 2022-04-29 23:09 | NUR ---
Given [place] 5/325 mg per patients request d/t back pain 02/22. Comfort measures rendered. will monitor closely.
--- NOTE | 2022-04-29 23:45 | NUR ---
[place] effective. pt pain 0/10. will continue to monitor for safety.
[2022-04-29] MEDS: ZOLPIDEM TARTRATE 5 MG TABLET PO PRN (23:49)
[2022-04-30] MEDS: ALBUTEROL FS 2.5 MG/0.5 ML VIAL.NEB NEB SCH (07:35)
[2022-04-30 08:00] VITALS: BP 118/59
--- NOTE | 2022-04-30 08:01 | NUR ---
NARESH Discharge Note: Patient will return back to [facility] located at [[address] [facility] [address]; ([phone]). Patient will be provided with taxi at 12PM. [employer] ([phone]) stated pt is welcomed back. NARESH spoke with patients daughter Cammy ([phone]) who is aware. Patient is alert and oriented x3. Patient denies visual/auditory hallucinations. Patient denies suicidal or homicidal ideation. Patient will follow up with ([employer]) Dr. Dane Mariano [address] [facility] [address]; ([phone]) and pt will follow up with (Psychiatrist) Dr. Shelton Ivory [address] [facility] [address]; ([phone]).at the facility. Patient presents with euthymic mood and congruent affect.
[2022-04-30] MEDS: DOCUSATE SODIUM 100 MG CAPSULE PO SCH (08:31)
[2022-04-30] MEDS: ASPIRIN EC 81 MG TABLET.DR PO SCH (08:31)
[2022-04-30] MEDS: PANTOPRAZOLE 40 MG TABLET.DR PO SCH (08:31)
[2022-04-30] MEDS: NEOMY SULF/BACITRAC ZN/POLY 15 GM TUBE TP SCH (08:31)
[2022-04-30] MEDS: risperiDONE 1 MG TABLET PO SCH (08:31)
[2022-04-30] MEDS: HYDROCODONE/APAP 5/325MG TABLET PO PRN (08:45)
--- NOTE | 2022-04-30 09:00 | NUR ---
RN NOTE- PT. RESTING IN BED. A&OX2, NO S/SX OF ACUTE DISTRESS NOTED. PATIENT IS CALM UPON APPROACH, FORGETFUL AT TIMES, COOPERATIVE TO CARE. ENCOURAGED TO VERBALIZE ANY FEELING OR CONCERNS. DENIES SI/HI/ AVH AT THIS TIME. SAFETY MEASURES IN PLACE. WILL CONTINUE TO MONITOR Q15MIN FOR SAFETY AND BEHAVIOR.
--- NOTE | 2022-04-30 13:10 | NUR ---
RN NOTE- PT DC HOME VIA TAXI AT THIS TIME. ALERT ORIENTED TO PERSON PLACE PURPOSE. MED COMPLIANT, DENIES SI HI VH. PT REFUSED PHOTOS / WOUND / SKIN TEAR LUE. DRESSING IN PLACE / DRY / INTACT. ID [id number] REMOVED. VS STABLE. ESCORTED OFF UNIT TO TAXI BY THIS RN.
== END 2022-04-30 13:15 | disposition home or self-care (01) | DRG 885 ==
LOC: GPS 13:04
PROVIDERS: ADMIT Psychiatry & Neurology Psychiatry; ATTEND Student in an Organized Health Care Education/Training Program
DX: F32.3 Major depressive disorder, single episode, severe with psychotic features (principal); F01.51 Vascular dementia, unspecified severity, with behavioral disturbance; F02.81 Dementia in other diseases classified elsewhere, unspecified severity, with behavioral disturbance; G93.40 Encephalopathy, unspecified; F29 Unspecified psychosis not due to a substance or known physiological condition; E78.5 Hyperlipidemia, unspecified; F41.9 Anxiety disorder, unspecified; E86.0 Dehydration; E87.6 Hypokalemia; I10 Essential (primary) hypertension; Z79.899 Other long term (current) drug therapy; E80.6 Other disorders of bilirubin metabolism; Q66.89 Other specified congenital deformities of feet; F32.A Depression, unspecified; J44.9 Chronic obstructive pulmonary disease, unspecified; R53.1 Weakness; S90.122A Contusion of left lesser toe(s) without damage to nail, initial encounter; X58.XXXA Exposure to other specified factors, initial encounter; Y93.9 Activity, unspecified; Y92.89 Other specified places as the place of occurrence of the external cause; Z20.822 Contact with and (suspected) exposure to COVID-19; S80.811A Abrasion, right lower leg, initial encounter; S80.812A Abrasion, left lower leg, initial encounter; M20.092 Other deformity of left finger(s); M20.091 Other deformity of right finger(s); G20 Parkinson's disease; S41.112A Laceration without foreign body of left upper arm, initial encounter; Z91.81 History of falling
CPT/HCPCS: 36415; 80053-TC; 80061-TC; 82962-TC; 94799-TC; 97116-TC; 97530-TC; A6253; A6403